=== PATIENT | female | born 1955 | race Two or more races ===

== ENCOUNTER 2018-11-14 07:09 | Outpatient (CLI) | payer OTHER | END 2018-11-14 07:22 | disposition home or self-care (01) | LOC: MRI 07:09 | DX: K83.8 Other specified diseases of biliary tract (principal); R93.5 Abnormal findings on diagnostic imaging of other abdominal regions, including retroperitoneum; K29.70 Gastritis, unspecified, without bleeding | CPT/HCPCS: 74181 ==

== ENCOUNTER 2021-11-26 05:10 | Day surgery (SDC) | payer OTHER ==
[~2021-11-26] VITALS: Ht 147.3 cm; Wt 81.6 kg
[~2021-11-26 05:10] MED LIST: ADULT LOW DOSE81 M1 PO; COZAAR50 MG PO; HYDROCHLOROTH12.5 MG PO; METFORMIN HCL750 MG PO; TOPROL XL25 M1 PO; VERELAN240 MG PO; ZOCOR20 MG PO
[2021-11-26] MEDS ORDERED: PERCOCET 5-3251 EACH PO (08:35)
== END 2021-11-26 12:50 | disposition home or self-care (01) ==
LOC: CIR.AMB 05:10
PROVIDERS: ATTEND Surgery
DX: K64.2 Third degree hemorrhoids (principal); K62.89 Other specified diseases of anus and rectum; K62.5 Hemorrhage of anus and rectum; Z88.8 Allergy status to other drugs, medicaments and biological substances; Z20.822 Contact with and (suspected) exposure to COVID-19; E78.5 Hyperlipidemia, unspecified; I10 Essential (primary) hypertension; Z79.84 Long term (current) use of oral hypoglycemic drugs; E11.9 Type 2 diabetes mellitus without complications; Z79.82 Long term (current) use of aspirin

== ENCOUNTER 2021-12-21 19:51 | Emergency (ER) | payer OTHER ==
[~2021-12-21] VITALS: Ht 147.3 cm; Wt 79.4 kg
[~2021-12-21 19:51] MED LIST changes: +PERCOCET 5-3251 EACH PO
[2021-12-21] MEDS ORDERED: LEVSIN/SL0.125 MG SL (22:06)
== END 2021-12-21 22:10 | disposition home or self-care (01) ==
LOC: ER 19:51
DX: R10.32 Left lower quadrant pain (principal); I10 Essential (primary) hypertension; Z88.8 Allergy status to other drugs, medicaments and biological substances; E11.9 Type 2 diabetes mellitus without complications; Z79.84 Long term (current) use of oral hypoglycemic drugs

== ENCOUNTER 2023-03-26 15:44 | Emergency (ER) | payer OTHER ==
[~2023-03-26] VITALS: Ht 147.3 cm; Wt 83.9 kg
[~2023-03-26 15:44] MED LIST changes: +LEVSIN/SL0.125 MG SL
[2023-03-26] MEDS ORDERED: COZAAR100 MG PO (16:22)
== END 2023-03-26 21:17 | disposition home or self-care (01) ==
LOC: ER 15:44
DX: M54.50 Low back pain, unspecified (principal); M50.31 Other cervical disc degeneration, high cervical region; Z88.8 Allergy status to other drugs, medicaments and biological substances; E11.9 Type 2 diabetes mellitus without complications; Z79.84 Long term (current) use of oral hypoglycemic drugs; I10 Essential (primary) hypertension; M85.88 Other specified disorders of bone density and structure, other site; M62.838 Other muscle spasm
CPT/HCPCS: 72040; 72100; 96372; 99284; J1885; J2360

== ENCOUNTER 2023-09-08 05:32 | Day surgery (SDC) | payer OTHER ==
[2023-09-01 11:20] LABS: HEMATOCRIT 40.9 % (36.0-45.00); HEMOGLOBIN 13.7 g/dL (12.0-15.00); MEAN CELL VOLUME 88.1 fL (80.00-100.00); MEAN CORPUSCULAR HEMOGLOBIN 29.5 pg (27.00-32.0); MEAN CORPUSCULAR HGB CONC 33.5 g/dl (32.0-36.0); PLATELET COUNT 315 K/uL (150-450); RED BLOOD COUNT 4.65 M/uL (4.00-6.00); RED CELL DISTRIBUTION WIDTH 13.8 % (11.5-14.5)
[2023-09-01 11:30] LABS: PH,URINE 6.5 (5.0-8.0); URINE APPEARANCE Cloudy; URINE BILIRRUBIN Negative (NEGATIVE); URINE BLOOD Negative; URINE COLOR Yellow; URINE GLUCOSE Negative (NEGATIVE); URINE LEUKOCYTE Negative; URINE NITRATE Negative; URINE PROTEIN Trace (NEGATIVE); URINE UROBILINOGEN 0.2 E.U./dl
[2023-09-01 11:34] LABS: URINE BACTERIA 3123.2 uL (0.0-1933); URINE EPITHELIAL CELLS 29.8 uL (0.0-38.8); URINE RBC 27.4 uL (0.0-20.8); URINE WBC 23.4 uL (0.0-23.2)
[2023-09-01 11:51] LABS: ALBUMIN 3.6 gm/dL (3.4-5.0); BILIRUBIN TOTAL 0.35 mg/dL (0.3-1.2); CALCIUM 9.4 mg/dL (8.5-10.1); CREATININE SERUM 0.82 mg/dL (0.55-1.02); GFR 68.92; GLOBULINA 4.6 G/DL (2.4-3.5); POTASSIUM 3.86 mEq/L (3.5-5.1); TOTAL PROTEIN 8.2 gm/dL (6.4-8.2)
[2023-09-01 11:57] LABS: INR 1.06; PROTHROMBIN TIME 11.1 SECONDS (9.0-11.5)
[~2023-09-08 05:32] MED LIST changes: +COZAAR100 MG PO; +LOSARTAN POTASS50 MG PO; +PROZAC 30MG; +VERAPAMIL
[2023-09-08] MEDS ORDERED: METRONIDAZOLE/SODIUM CHLORIDE 500 MG/100 ML PIGGYBACK IV ONE (08:29)
[2023-09-08] MEDS ORDERED: CEFTRIAXONE SODIUM 2,000 MG VIAL ONE (08:29)
[2023-09-08] MEDS ORDERED: BUPIVACAINE HCL/PF 0.5% 30ML ML ONE (08:29)
[2023-09-08] MEDS ORDERED: LIDOCAINE HCL 1%/Epi 20ML VIAL IJ ONE ×2 (08:30→09:00)
[2023-09-08] MEDS ORDERED: DIBUCAINE 15 GM OINT..GM. TUBE ONE (08:30)
[2023-09-08] MEDS ORDERED: HEMOSTATIC MATRIX 1 KIT KIT TOP ONE ×2 (08:30→09:00)
[2023-09-08] MEDS ORDERED: POVIDONE-IODINE 118 ML BOTT TOP ONE (08:30)
[2023-09-08] MEDS ORDERED: CEFTRIAXONE SODIUM 2,000 MG in 0.9 % SODIUM CHLORIDE 50 ML IV ONE (09:00)
[2023-09-08] MEDS ORDERED: BUPIVACAINE HCL/PF 0.5% 30ML ML IU ONE (09:00)
[2023-09-08] MEDS ORDERED: METRONIDAZOLE/SODIUM CHLORIDE 200 ML IV ONE (09:00)
[2023-09-08] MEDS ORDERED: DIBUCAINE 30 GM TUBE RC ONE (09:00)
[2023-09-08] MEDS ORDERED: POVIDONE-IODINE 118 ML BOTT TP ONE (09:00)
[2023-09-08] MEDS ORDERED: OXYC1TAB9 PO (12:04)
[2023-09-08] MEDS ORDERED: hydrALAZINE HCL 20 MG VIAL ONE (13:04)
== END 2023-09-08 18:10 | disposition home or self-care (01) ==
LOC: CIR.AMB 05:32
PROVIDERS: ATTEND Surgery
DX: K60.1 Chronic anal fissure (principal); K62.89 Other specified diseases of anus and rectum; K62.4 Stenosis of anus and rectum

== ENCOUNTER 2023-09-19 19:53 | Inpatient (IN) | payer OTHER ==
[~2023-09-19] VITALS: Ht 121.9 cm; Wt 83.9 kg
[~2023-09-19 19:53] MED LIST changes: +OXYC1TAB9 PO
[2023-09-19 23:04] LABS: HEMATOCRIT 37.6 % (36.0-45.00); HEMOGLOBIN 12.5 g/dL (12.0-15.00); MEAN CELL VOLUME 87.7 fL (80.00-100.00); MEAN CORPUSCULAR HEMOGLOBIN 29.3 pg (27.00-32.0); MEAN CORPUSCULAR HGB CONC 33.4 g/dl (32.0-36.0); PLATELET COUNT 301 K/uL (150-450); RED BLOOD COUNT 4.29 M/uL (4.00-6.00); RED CELL DISTRIBUTION WIDTH 14.1 % (11.5-14.5)
[2023-09-19 23:33] LABS: ALBUMIN 3.1 gm/dL (3.4-5.0); BILIRUBIN TOTAL 0.24 mg/dL (0.3-1.2); CALCIUM 9.1 mg/dL (8.5-10.1); CREATININE SERUM 1.06 mg/dL (0.55-1.02); GFR 51.25; GLOBULINA 4.6 G/DL (2.4-3.5); POTASSIUM 3.25 mEq/L (3.5-5.1); TOTAL PROTEIN 7.7 gm/dL (6.4-8.2)
[2023-09-20] MEDS ORDERED: PIPERACILLIN/TAZOBACTAM SODIUM 3.375 GM VIAL IV STA (05:22)
[2023-09-20] MEDS ORDERED: RINGERS SOLUTION,LACTATED 1,000 ML IV STA (05:22)
[2023-09-20] MEDS ORDERED: METRONIDAZOLE/SODIUM CHLORIDE 500 MG/100 ML PIGGYBACK IV SCH (17:05)
[2023-09-20] MEDS ORDERED: GABAPENTIN 300 MG CAPSULE PO SCH (17:05)
[2023-09-20] MEDS ORDERED: CIPROFLOXACIN IN 5 % DEXTROSE 400 MG/200 ML PIGGYBAG IV SCH (17:05)
[2023-09-20] MEDS ORDERED: LACTOBACILLUS ACIDOPHILUS 1 CAP CAP PO SCH (17:05)
[2023-09-20] MEDS ORDERED: RINGERS SOLUTION,LACTATED 1,000 ML IV SCH (17:15)
[2023-09-20 18:27] LABS: INR 1.07; PARTIAL THROMBOPLASTIN TIME 29.4 SECONDS (22.0-34.0); PROTHROMBIN TIME 11.2 SECONDS (9.0-11.5)
[2023-09-20 18:31] LABS: ALBUMIN 3.3 gm/dL (3.4-5.0); BILIRUBIN TOTAL 0.29 mg/dL (0.3-1.2); CALCIUM 9.4 mg/dL (8.5-10.1); CREATININE SERUM 0.81 mg/dL (0.55-1.02); GFR 69.9; GLOBULINA 4.9 G/DL (2.4-3.5); POTASSIUM 3.41 mEq/L (3.5-5.1); TOTAL PROTEIN 8.2 gm/dL (6.4-8.2)
[2023-09-21 06:33] LABS: HEMATOCRIT 37.7 % (36.0-45.00); HEMOGLOBIN 12.6 g/dL (12.0-15.00); MEAN CELL VOLUME 88.2 fL (80.00-100.00); MEAN CORPUSCULAR HEMOGLOBIN 29.6 pg (27.00-32.0); MEAN CORPUSCULAR HGB CONC 33.5 g/dl (32.0-36.0); PLATELET COUNT 292 K/uL (150-450); RED BLOOD COUNT 4.28 M/uL (4.00-6.00); RED CELL DISTRIBUTION WIDTH 14.1 % (11.5-14.5)
[2023-09-21 06:50] LABS: ALBUMIN 3.1 gm/dL (3.4-5.0); CREATININE SERUM 0.83 mg/dL (0.55-1.02); GFR 67.96; PHOSPHOROUS 3.1 mg/dL (2.5-4.9); POTASSIUM 3.47 mEq/L (3.5-5.1)
[2023-09-21] MEDS ORDERED: VERAPAMIL ER240 MG (08:14)
[2023-09-21] MEDS ORDERED: FLUOXETINE HCL20 MG (08:30)
[2023-09-21] MEDS ORDERED: FLUOXETINE HCL10 MG (08:31)
[2023-09-21] MEDS ORDERED: PANTOPRAZOLE SODIUM 40 MG/VIAL VIAL IV SCH (09:00)
[2023-09-21] MEDS ORDERED: POTASSIUM CHLORIDE IN WATER 40 MEQ/100 ML PIGGYBAG IV ONE (12:00)
[2023-09-21] MEDS ORDERED: METOPROLOL SUCCINATE 25 MG TAB.SR.24H PO SCH (15:46)
[2023-09-21] MEDS ORDERED: VERAPAMIL HCL 240 MG TABLET.SA PO SCH (15:46)
[2023-09-21] MEDS ORDERED: ACETAMINOPHEN 500 MG GEL..CAP PO PRN (16:00)
[2023-09-21] MEDS ORDERED: INSULIN LISPRO 1,000 UNIT/10 ML UNITS SUBCUTANEO PRN (16:00)
[2023-09-21] MEDS ORDERED: ENALAPRILAT DIHYDRATE 1.25 MG/ML VIAL IV PRN (16:00)
[2023-09-21] MEDS ORDERED: DEXTROSE 50 % IN WATER 0.5 G/ML DISP.SYRIN IV PRN (16:00)
[2023-09-21] MEDS ORDERED: POTASSIUM CHLORIDE 8 MEQ TABLET PO SCH (17:00)
[2023-09-21] MEDS ORDERED: ENOXAPARIN SODIUM 40 MG/0.4 ML SYRINGE SUBCUTANEO SCH (17:00)
[2023-09-21] MEDS ORDERED: SIMVASTATIN 20 MG TABLET PO SCH (17:00)
[2023-09-21] MEDS ORDERED: POLYETHYLENE GLYCOL 3350 17 GM BLIST.PACK PO SCH (17:00)
[2023-09-22 07:57] LABS: HEMOGLOBIN 11.7 g/dL (12.0-15.00); MEAN CELL VOLUME 87.6 fL (80.00-100.00); MEAN CORPUSCULAR HEMOGLOBIN 29.2 pg (27.00-32.0); MEAN CORPUSCULAR HGB CONC 33.3 g/dl (32.0-36.0); PLATELET COUNT 265 K/uL (150-450); RED CELL DISTRIBUTION WIDTH 14.3 % (11.5-14.5)
[2023-09-22 08:36] LABS: CREATININE SERUM 0.84 mg/dL (0.55-1.02); GFR 67.03; POTASSIUM 3.79 mEq/L (3.5-5.1)
[2023-09-22] MEDS ORDERED: LOSARTAN POTASSIUM 50 MG TABLET PO SCH (09:00)
[2023-09-22] MEDS ORDERED: AMOX-CLAV 875-1 EACH PO (12:25)
[2023-09-22] MEDS ORDERED: INTESTINEX680 M1 PO (13:26)
== END 2023-09-22 18:18 | disposition home or self-care (01) | DRG 394 ==
LOC: ER 19:53 → SURH 09-20 17:28
PROVIDERS: General Practice; ADMIT Surgery; ATTEND Surgery
PROC: BW21ZZZ Computerized Tomography (CT Scan) of Abdomen and Pelvis (ICD-10-PCS; principal; 2023-09-19)
DX: K61.1 Rectal abscess (principal); K62.5 Hemorrhage of anus and rectum; E11.9 Type 2 diabetes mellitus without complications; I10 Essential (primary) hypertension; Z79.4 Long term (current) use of insulin

== ENCOUNTER 2025-05-07 08:43 | Outpatient (CLI) | payer OTHER ==
[~2025-05-07 08:43] MED LIST changes: +AMOX-CLAV 875-1 EACH PO; +FLUOXETINE HCL10 MG; +FLUOXETINE HCL20 MG; +INTESTINEX680 M1 PO; +VERAPAMIL ER240 MG
== END 2025-05-07 08:47 | disposition home or self-care (01) ==
LOC: RAD 08:43
PROVIDERS: ATTEND Orthopaedic Surgery Hand Surgery
DX: Z01.818 Encounter for other preprocedural examination (principal)